=== PATIENT | male | born 1975 | race Caucasian/White ===

== ENCOUNTER → 2017-02-24 | Outpatient (CLI) | payer OTHER ==
[~2017-02-24] MED LIST: HUMI40KI SC; PRIL40CA PO
--- NOTE | 2017-02-24 11:47 | REP ---
Right foot series: Four views. History: Foot pain. Findings: Four views of the right foot demonstrate a small plantar calcaneal spur. Bone, joints and soft tissues are otherwise unremarkable. Impression: Minimal heel spur. Otherwise negative right foot radiographs. Signed by Darryn Milner MD 02/24/2017 02:18 P
== END ==
LOC: M WUC 09:02
PROVIDERS: ATTEND Physician Assistant
DX: M77.31 Calcaneal spur, right foot (principal); M79.671 Pain in right foot

== ENCOUNTER → 2017-04-03 | Outpatient (REF) | payer OTHER ==
[2017-04-03 11:53] LABS: MEAN CORPUSCULAR HEMOGLOBIN 28.8 pg (27.0-33.0); MEAN CORPUSCULAR HGB CONC 33.7 g/dl (32.0-36.5); MEAN CORPUSCULAR VOLUME 85.5 fl (80.0-96.0); PLATELET COUNT, AUTOMATED 306 10^3/uL (150-450); RED CELL DISTRIBUTION WIDTH 12.7 % (11.5-14.5); WHITE BLOOD COUNT 6.6 10^3/uL (4.0-10.0)
[2017-04-03 12:39] LABS: ALBUMIN 4.1 GM/DL (3.2-5.2); ALBUMIN/GLOBULIN RATIO 1.41 (1.00-1.93); ALKALINE PHOSPHATASE 77 U/L (45-117); ALT/SGPT 55 U/L (12-78); ANION GAP 7 MEQ/L (8-16); AST/SGOT 29 U/L (7-37); BILIRUBIN,TOTAL 1.1 MG/DL (0.2-1.0); BLOOD UREA NITROGEN 16 MG/DL (7-18); CALCIUM LEVEL 8.9 MG/DL (8.5-10.1); CARBON DIOXIDE LEVEL 28 MEQ/L (21-32); CHLORIDE LEVEL 106 MEQ/L (98-107); CHOLESTEROL LEVEL 215 MG/DL (<200); CREATININE FOR GFR 1.01 MG/DL (0.70-1.30); GLOMERULAR FILTRATION RATE > 60.0 (>60); GLUCOSE, FASTING 88 MG/DL (70-105); POTASSIUM SERUM 4.4 MEQ/L (3.5-5.1); SODIUM LEVEL 141 MEQ/L (136-145); TRIGLYCERIDES LEVEL 153 MG/DL (<150); URIC ACID 4.8 MG/DL (3.5-7.2)
== END ==
LOC: M SFHCPLAZ 10:19
PROVIDERS: ATTEND Nurse Practitioner Adult Health
DX: Z00.00 Encounter for general adult medical examination without abnormal findings (principal); M79.671 Pain in right foot; Z83.49 Family history of other endocrine, nutritional and metabolic diseases; Z83.3 Family history of diabetes mellitus

== ENCOUNTER → 2017-04-16 | Outpatient (CLI) | payer OTHER ==
--- NOTE | 2017-04-16 10:28 | REP ---
MRI OF THE LEFT SHOULDER WITHOUT CONTRAST: 04/16/2017 CLINICAL HISTORY: Left shoulder pain after a fall. TECHNIQUE: Sagittal fat suppressed T2 with axial 3D gradient echo, T2 fat suppressed and both T1 and fat suppressed T2 coronal images provided. FINDINGS: There are no prior pertinent studies. Hypertrophic spurring from the clavicle more than acromion at the AC joint indents musculotendinous junction. There is also a peripheral acromial spur, which does indent the musculotendinous junction rotator cuff and also contribute to some bursal surface fraying. Trace of subacromial and subdeltoid bursal fluid. Tendinosis and tendinopathy of the supraspinatus and linear intrasubstance signal but no full-thickness tear or tendon, atrophy of its muscle belly or retraction of that tendon. The insertional footprint of the tendon shows some tendinopathy but no evidence of avulsion or tear. The subscapularis tendon is thickened with evidence of tendinopathy. No muscle atrophy or tendon tear/retraction. The infraspinatus and teres minor tendons and muscles are intact. Along the posterior inferior margin of the glenohumeral joint, there are small cystic areas suggesting paralabral cysts. There is also a similar finding at the anterior-superior aspect of the glenoid deep to the subscapularis tendon. The thickened cord-like glenohumeral ligament is noted. There is heterogeneous signal abnormality within the superior labrum may reflect labral degeneration or a tear. Biceps labral complex grossly intact. The spinal glenoid notch shows no mass or fluid collection. IMPRESSION: 1. There appear to be some paralabral cysts posterior inferior and anterior superior aspect of the glenoid suggesting some labral injury or labral degenerative changes superiorly. I cannot entirely exclude a labral tear but cannot confirm a definite avulsion of the labrum from the bony glenoid. 2. Biceps labral junction intact. The biceps tendon is seated in its groove. 3. Tendinopathy supraspinatus without a full-thickness tear, retraction of the tendon or atrophy of muscle belly. There is also subscapularis tendinopathy without atrophy or muscle or tendon tear/retraction. 4. The infraspinatus and teres minor tendons intact as are their muscles. 5. Impingement musculotendinous junction rotator cuff by acromial spur and peripheral acromial spur causing impingement and some bursal surface fraying/tendinopathy supraspinatus. There is no full-thickness tear of the supraspinatus or retraction of that tendon. 6. Coracoclavicular and the coracohumeral ligaments are grossly intact. Signed by Alex Orta MD 04/17/2017 05:52 P
== END ==
LOC: M RAD 08:00
PROVIDERS: ATTEND Nurse Practitioner Adult Health
DX: M25.512 Pain in left shoulder (principal)